=== PATIENT | female | born 1975 | race Caucasian/White ===

== ENCOUNTER 2023-10-07 11:27 | Outpatient (AMB) | payer OTHER, SELFPAY ==
[2023-10-07 11:30] VITALS: BMI 54.7
--- NOTE | 2023-10-07 11:30 | A.OFFVIS_ITS ---
VS Expanded 10/07/23 11:30 10/14/23 12:39 Height 5 ft 3 in 5 ft 3 in Weight 308 lb 13.882 oz 309 lb BMI 54.7 54.7 Intake Visit Reasons: Morbid Obesity/CONFIRMED Nutrition Presentation Details: Pt presents for MNT for obesity. Pt was referred by Minesh Ordonez from [place] Pt expresses motivation to make diet modifications for weight loss Pt reports lack of meal routine physical activity : sedentary fruits: 0-1/d vex/wk fish/omega 3 sources: not including eating out: majority of the time - choosing highly processed foods BS Monitoring Most Recent Diabetes Results: No Data to Display AOA-Mjpzped-Xf.Noe Equation Height: 5 ft 3 in Weight: 309 lb Resting Metabolic Rate: 2003.16 Calculated Activity Level: Sedentary Calories Needed to Maintain Weight: 2403.79 Diagnosis Nutrition problem #1: excessive energy intake As related to (etiology) #1: diagnosis As evidenced by (sign/symptom) #1: knowledge deficit of diet Assessment & Plan Assessment & Plan (1) Morbid obesity with BMI of 50.0-59.9, adult: Code(s): E66.01 - Morbid (severe) obesity due to excess calories; Z68.43 - Body mass index [BMI] 50.0-59.9, adult Category: Medical Plan: Wt: 140 Kg ( 10/2023) Est kcal needs as per MSJ: 2300 (40% carb, 30% protein/fat) Est fluid needs as per 25-30 ml/d: 4200 Est prot per day as per 1 g/kg bw: 140 Recommend fiber intake : 8-10 g per day and gradually increase to 25-28 g per day for women and 35-38 g for men or as tolerated Recommend sodium intake per day : less than 2000 mg Educated patient on: ( R = reviewed V = verbalizes understanding N/R = needs review N/A = not applicable * Food sources of carbohydrate, adequate serving sizes and its role in various health conditions: R * Differences between complex carbohydrates a simple carbohydrates, role of fiber in diet: R V N/R * Lean protein sources of foods: R * Differences between types of fats and role in diet (mono on saturated fat fatty acids, saturated fatty acids, trans fats): R * Food sources of sodium in salt and healthy modifications for heart health in kidney health: R V R/V * Vitamins and minerals: R V N/R * Healthy plate method concept: R V N/R * Physical activity: Benefits a precaution: R V N/R Patient Instructions: Follow healthy plate method at dinner no later than 7 pm HAve water with meals, reducing on sugar intake Coding Level of Care Code Nutr Indiv Intake (72107) Diagnoses Morbid obesity with BMI of 50.0-59.9, adult E66.01; Z68.43 Time Spent (min) 30
[2023-10-14 12:39] VITALS: BMI 54.7
== END 2023-10-07 12:18 | disposition home or self-care (01) ==
PROVIDERS: Visit Provider Dietitian, Registered
DX: E66.01 Morbid (severe) obesity due to excess calories (principal); Z68.43 Body mass index [BMI] 50.0-59.9, adult

== ENCOUNTER → 2023-10-07 11:27 | Outpatient (BNVA) | payer OTHER, SELFPAY | PROVIDERS: Visit Provider Dietitian, Registered | DX: E66.01 Morbid (severe) obesity due to excess calories (principal); Z68.43 Body mass index [BMI] 50.0-59.9, adult | CPT/HCPCS: 97802 ==